=== PATIENT | male | born 1975 | race Caucasian/White ===

== ENCOUNTER 2023-12-08 16:48 | Emergency (ER) | payer BC, SELFPAY ==
[2023-12-08 16:58] VITALS: BP 160/108
--- NOTE | 2023-12-08 17:41 | ED.GENMED ---
History of Present Illness
<Katy Doe PA-C - Last Filed: 12/08/23 23:33>
General
Chief Complaint: Nasal Problem
Source: patient
Exam Limitations: none
Time Seen by Provider: 12/08/23 17:25
Nursing documentation reviewed up to this point in time: agreed with
History of Present Illness
History of Present Illness:
48-year-old male presenting to the emergency department for evaluation of injury to nose occurring last night. Patient states that he was at work event at a bar around 2:30 AM when he slipped on the wet floor causing him to fall forward striking
his nose on the edge of his cesar hand. He was able to catch himself and did not fall to the floor. No other associated injuries. No head strike or loss of consciousness. Patient was able to clean the wound on his nose out with soap and water
gently. Patient denies any significant pain in nose, nosebleeds or difficulty breathing. Patient denies any head or neck pain.
Bleeding has stopped as of today. Patient came to the emergency department to determine if will require any closure and for further evaluation.
Past History
<Katy Doe PA-C - Last Filed: 12/08/23 23:33>
Past History
ED Past Medical History: None
ED Past Surgical History: None
Social History
Tobacco: Non-smoker
Alcohol: None
Drug: None
Personal:
Living: with family
Employment: Employed
Family History
Family History: Negative Early CAD
Review of Systems
<BHARAT Leigh Last Filed: 12/08/23 23:33>
Review of Systems
Allergies reviewed?: Yes
All Other Systems: ROS reviewed and negative except as documented in HPI and ROS
Phy Exam
<Katy Doe PA-C - Last Filed: 12/08/23 23:33>
Physical Exam
Physical Exam:
Vitals: Hypertensive on arrival, otherwise vital signs stable
General: Patient is well appearing, no acute distress
Skin: Warm and dry, no rashes or lesions
Head: Normocephalic, atraumatic
Eyes: Sclera nonicteric. EOMs intact. No nystagmus.
Nose: 1 cm horizontal linear superficial abrasion to nasal bridge not actively bleeding with very minimal overlying tenderness.. No septal hematoma. No obvious deformity or step-off of nasal bridge. No epistaxis.
Throat: No blood in posterior pharynx. protecting airway
Neck: Normal ROM, no cervical spine tenderness, no meningismus
Cardiac: Regular rate and rhythm, no murmurs.
Pulm: Normal respiratory effort, no wheezes, rales, rhonchi heard on exam.
Abdomen: No abdominal tenderness.
Extremities: No evidence of cyanosis or edema
Neuro: AAOx3. CN II-XII intact. No focal neurologic deficits.
Psychiatric: Normal affect.
Course
<Katy Doe PA-C - Last Filed: 12/08/23 23:33>
Orders/Labs/Results
Orders:
Orders
12/08/23 17:40
Tetanus/Diphth/Acelpertussis [Adacel] 0.5 ml IM .ONCE ONE
Vital Signs
Initial and Last Documented VS:
Initial Vital Signs
Temp Pulse Resp BP Pulse Ox
97.9 F 70 19 160/108 99
12/08/23 16:58 12/08/23 16:58 12/08/23 16:58 12/08/23 16:58 12/08/23 16:58
Last Documented Vital Signs
Temp Pulse Resp BP Pulse Ox
97.9 F 71 16 158/89 98
12/08/23 16:58 12/08/23 17:51 12/08/23 17:51 12/08/23 17:51 12/08/23 17:51
<Pricilla Su DO - Last Filed: 12/08/23 19:52>
Orders/Labs/Results
Orders:
Orders
12/08/23 17:40
Tetanus/Diphth/Acelpertussis [Adacel] 0.5 ml IM .ONCE ONE
Vital Signs
Initial and Last Documented VS:
Initial Vital Signs
Temp Pulse Resp BP Pulse Ox
97.9 F 70 19 160/108 99
12/08/23 16:58 12/08/23 16:58 12/08/23 16:58 12/08/23 16:58 12/08/23 16:58
Last Documented Vital Signs
Temp Pulse Resp BP Pulse Ox
97.9 F 71 16 158/89 98
12/08/23 16:58 12/08/23 17:51 12/08/23 17:51 12/08/23 17:51 12/08/23 17:51
<Katy Doe PA-C - Last Filed: 12/08/23 23:33>
MDM/Problems Addressed
Differential Diagnosis Includes:
Not limited to: Laceration, nose contusion, nasal fracture
MDM/Problems Addressed:
48-year-old male presenting with abrasion to left nose sustained early this morning after hitting it on a beer can. No associated epistaxis. No significant tenderness of nose or obvious deformity. No headache, neck pain. No other injuries.
Patient hypertensive, otherwise vital signs stable. Patient is very well-appearing, in no apparent distress. There is no evidence of head or neck trauma. He does have a 1 cm superficial abrasion of the nasal bridge without any active bleeding.
Wound is not gaping. There is no active epistaxis. There is no evidence of a septal hematoma. No obvious deformity of nose or significant tenderness to nasal bridge. Do not suspect nasal fracture.
Did clean wound with normal saline. Did update tetanus shot. Recommend wound care. Discussed importance of sun protection to limit scarring. Return precautions discussed. Patient stable for discharge. Patient seen by attending physician.
Chronic conditions affecting care:
N/A
Acute Exacerbation and/or Progression of Chronic Illness:
N/A
<Katy Doe PA-C - Last Filed: 12/08/23 23:33>
*Pulse Oximetry
Patient hypoxic: no
*EKG
Interpreted by ED Provider?: NA
*Wildlife Enforcement Major Interpretation
Rate: Wildlife Enforcement Major- N/A
*Critical Care Note
Total Time (30-74mins, 75-104mins- exclusive of procedures): Not Applicable
ED Attending Note
<Katy Doe PA-C - Last Filed: 12/08/23 23:33>
-
Portions of this chart may have been created with voice recognition software.� Occasional wrong word or��sound alike� substitutions may have occurred due to the inherent limitations of voice recognition software.
<Pricilla Su DO - Last Filed: 12/08/23 19:52>
ED Attending Note
Patient seen and examined by attending physician: Yes
I performed a history and physical exam of patient and discussed management with resident, I reviewed resident's note and agree with documented findings and plan of care.: Yes
ED Attending Note:
I have reviewed and agree with Katy Doe's history and treatment plan. My exam revealed 1cm superficial abrasion to bridge of nose. No active bleeding. Nongaping. Advised wound care, stable for discharge.
Discharge Plan
Departure
Patient Disposition: Home (Routine Discharge)
Date of Disposition: 12/08/23
Time of Disposition: 17:48
Patient with high blood pressure during this ER visit?: Yes
Condition: Good
Covid-19: Not Applicable
Discharge Problem:
Abrasion of nose
Prescriptions:
No Action
ibuprofen [Advil] 200 MG tablet
600 mg PO Q6HPRN PRN (Reason: pain)
ibuprofen 800 MG tablet
800 mg PO TID Qty: 20 0RF
Referrals:
Brant Belle MD [Family Provider] -
Activity Restrictions/Additional Instructions:
RETURN TO THE EMERGENCY DEPARTMENT WITH ANY SIGNIFICANT SEVERE HEADACHE, SEVERE NECK PAIN, PAIN OR SWELLING OF NOSE, DIFFICULTY BREATHING, PERSISTENT NOSE BLEED, WORSENING IN CURRENT SYMPTOMS, OR ANY OTHER CONCERNS
-You should keep abrasion on nose clean and dry. Wash gently with soap and water. Monitor for any signs of infection.
-As discussed�you should keep nose well protected with sunscreen when you are out in the sun. You can also apply topical vitamin E oil to limits for appearance.
�We did update your tetanus shot while you were in the emergency department today.
Monitor symptoms closely and return to the emergency department any acute worsening/new symptom
Interventions
Interventions:
*Risk Screen - Suicide Last Done: 12/08/23 16:56
*General Assessment Last Done: 12/08/23 16:56
*Neglect/Abuse Screening Last Done: 12/08/23 16:56
ED- Fall Risk Assessment Last Done: 12/08/23 17:50
*ED COVID-19 Vaccine History Last Done: 12/08/23 16:56
*Nursing Disposition Last Done: 12/08/23 17:58
ED-EENT Assessment Last Done: 12/08/23 17:39
Discharge Date and Time
Discharge Date/Time: 12/08/23 17:59
Print Language: DUTCH
[2023-12-08] MEDS: ADACEL 0.5 ML IM (17:45)
[2023-12-08 17:51] VITALS: BP 158/89
== END 2023-12-08 17:59 | disposition home or self-care (01) ==
LOC: EMR 16:48
PROVIDERS: EMERGENCY PHYSICIAN Emergency Medicine; FAMILY PHYSICIAN Family Medicine
DX: S00.31XA Abrasion of nose, initial encounter (principal); W01.0XXA Fall on same level from slipping, tripping and stumbling without subsequent striking against object, initial encounter; Z23 Encounter for immunization
CPT/HCPCS: 99282; 90471; 90715

== ENCOUNTER 2024-01-13 13:35 | Emergency (ER) | payer BC, SELFPAY ==
[2024-01-13 13:43] VITALS: BP 179/107
[2024-01-13 14:36] LABS: % Basophils 0.8 % (0-2); % Eosinophils 1.2 % (0-6); % Immature Granulocytes 0.4 % (0-0.5); % Lymphocytes 25.2 % (20.5-51.1); % Monocytes 5.4 % (1.7-9.3); Absolute Eosinophils 0.1 10^3/uL (0-0.7); Absolute Lymphocytes 1.3 10^3/uL (1.2-3.4); Absolute Monocytes 0.3 10^3/uL (0.1-0.6); Absolute Neutrophils 3.4 10^3/uL (1.4-6.5); Hematocrit 42.3 % (39.0-52.0); Hemoglobin 14.9 g/dL (13.0-18.0); Mean Corp Hgb Conc. 35.2 g/dL (33.0-37.0); Mean Corpuscular Hgb 29.6 pg (27.0-31.0); Mean Corpuscular Volume 83.9 fL (80.0-94.0); Mean Platelet Volume 9.8 fL (7.4-10.4); Nucleated Red Blood Cells % 0 % (-); Platelet Count 210 10^3/uL (130-400); Red Blood Cell Count 5.04 10^6/uL (4.70-6.10); Red Cell Dist. Width 12.6 % (11.5-14.5)
[2024-01-13 14:55] LABS: ALT (SGPT) 41 U/L (0-50); AST (SGOT) 29 U/L (17-59); Albumin 4.9 g/dl (3.5-5.0); Alkaline Phosphatase 61 U/L (38-126); Blood Urea Nitrogen 17 mg/dl (9-20); Calcium 9.9 mg/dl (8.4-10.2); Carbon Dioxide 28 mmol/L (22-30); Chloride 100 mmol/L (98-107); Glucose 109 mg/dl (70-99); Potassium 4.1 mmol/L (3.5-5.1); Sodium 141 mmol/L (135-145); Total Protein 7.1 g/dl (6.3-8.2); eGFR > 60.00
[2024-01-13 15:05] LABS: Troponin I < 0.012 ng/ml
--- NOTE | 2024-01-13 16:31 | ED.GENMED ---
History of Present Illness
General
Chief Complaint: Chest Pain
Source: patient
Time Seen by Provider: 01/13/24 16:13
History of Present Illness
History of Present Illness:
48yoM with no significant past medical history presenting for evaluation of chest discomfort. Patient was doing yard work 1 week ago and was carrying a heavy door. He started to have bilateral shoulder discomfort the next day. His friend is a
physical therapist and told him to do some stretches to help with the pain. Patient reports central chest tightness over the past few days as well as shortness of breath. He is unsure if his chest discomfort is related to the stretches. He denies
any nausea or diaphoresis. He was seen in the ED last month for a nasal injury and he was told his blood pressure was elevated during his visit. He used his family member's BP cuff yesterday and BP was elevated in the 150s/100s. Of note, patient had
a 6 hour flight from [place] 1 week ago. He has not seen a PCP since 2018 and has an upcoming appt on 01/24/24. He denies any family history of heart disease. No tobacco use. Patient exercises regularly and is able to run about 1.5 miles at a time
without any chest discomfort.
Past History
Past History
ED Past Medical History: None
ED Past Surgical History: None
Social History
Tobacco: Non-smoker
Alcohol: None
Drug: None
Personal:
Living: with family
Employment: Employed
Family History
Family History: Negative Early CAD
Phy Exam
General Physical Exam
General Presentation: well appearing and no apparent distress
General age: appears stated age
General Skin: warm and dry
General Habitus: normal
General Mental: alert
ENT Exam
ENT Exam: normocephalic
Cardiovascular Exam
Cardiovascular Exam: regular rate/rhythm, no edema and no murmur
Pulmonary Exam
Pulmonary Exam: lungs clear, no respiratory distress, no crackles and no wheezing
[place] Coma Scale
Eye Opening: Spontaneous
Verbal Response: Oriented
Motor Response: Obeys Commands
GCS Total Score: 15
Skin Exam
Skin Exam: normal color and warm/dry
Psychiatric Exam
Psychiatric Exam: normal mood/affect
Scores
Heart Score for Chest Pain Patients
STEMI patient?: No
History: Slightly or Non-Suspicious
ECG: Nonspecific Repolarization
Age: >45 - <65 years
Risk Factors: No Risk Factors
Troponin: </= Normal Limit
Heart Score for Chest Pain Patients: 2
Heart Score Risk: 2.5% MACE over next 6 weeks
Course
Orders/Labs/Results
Orders:
Orders
01/13/24 13:36
EKG [Electrocardiogram (*1)] Urgent
Reason for Study: Chest Pain
EKG- Treatment ONCE
01/13/24 14:21
Complete Blood Count/With Diff Urgent
Comprehensive Metabolic Panel Urgent
Troponin I Urgent
01/13/24 16:29
Electrocardiogram (*1) Urgent
Reason for Study: Chest Pain
Cardiac Monitoring- Treatment ONCE
EKG- Treatment ONCE
01/13/24 16:30
CR Chest - 2 Views Urgent
Comment:
Reason For Exam: CP
01/13/24 17:18
D-Dimer Urgent
Troponin I Urgent
Abnormal Lab Results
01/13/24
14:21
Glucose 109 H mg/dl
(70-99)
01/13/24 14:21
01/13/24 14:21
Vital Signs
Initial and Last Documented VS:
Initial Vital Signs
Temp Pulse Resp BP Pulse Ox
98.1 F 74 18 179/107 99
01/13/24 13:43 01/13/24 13:43 01/13/24 13:43 01/13/24 13:43 01/13/24 13:43
Last Documented Vital Signs
Temp Pulse Resp BP Pulse Ox
98.1 F 66 19 139/105 97
01/13/24 13:43 01/13/24 18:30 01/13/24 18:30 01/13/24 18:00 01/13/24 18:30
MDM/Problems Addressed
Differential Diagnosis Includes:
48yoM here with central chest tightness x several days. C/o bilateral shoulder pain after yard work 1 week ago. C/o SOB. No known PMH. He is hypertensive on arrival with otherwise normal vitals. He is well appearing in no distress. Exam is
reassuring. Differential diagnosis includes but is not limited to: ACS, PE, pneumothorax, pneumonia, pericarditis, musculoskeletal, nonspecific chest pain
Initial ED plan: Cardiac labs and EKG obtained in triage. EKG shows NSR with an incomplete RBBB. Troponin WNL. Will obtain D-dimer, delta troponin/EKG, and CXR.
*EKG
Interpreted by ED Provider?: Yes
EKG Intrepretation Date: 01/13/24
Heart Rate: 62
Rate: normal
Rhythm: sinus
[place]: normal axis
QRS Pattern: right bundle branch block (incomplete)
Ischemia: no ischemia
*Critical Care Note
Total Time (30-74mins, 75-104mins- exclusive of procedures): Not Applicable
Update Note
Update Note:
D-dimer normal making PE very unlikely. Delta troponin/EKG unchanged. CXR is clear. On reassessment, patient is eager to go home. No indication for hospitalization. Advised close f/u with PCP. He has an appt scheduled for 01/23. Strict ED return
precautions discussed. He expressed understanding and is agreeable to plan. Patient discharged in stable condition.
ED Attending Note
-
Portions of this chart may have been created with voice recognition software.� Occasional wrong word or��sound alike� substitutions may have occurred due to the inherent limitations of voice recognition software.
Discharge Plan
Departure
Patient Disposition: Home (Routine Discharge)
Date of Disposition: 01/13/24
Time of Disposition: 18:41
Patient with high blood pressure during this ER visit?: Yes
Discharge Problem:
Chest pain
Instructions: Chest Pain PCP Follow Up
Prescriptions:
No Action
ibuprofen [Advil] 200 MG tablet
600 mg PO Q6HPRN PRN (Reason: pain)
ibuprofen 800 MG tablet
800 mg PO TID Qty: 20 0RF
Referrals:
Brant Belle MD [Family Provider] -
Activity Restrictions/Additional Instructions:
Please follow-up closely with your family doctor. Return to the ER immediately with any new or worsening symptoms.
Interventions
Interventions:
*Risk Screen - Suicide Last Done: 01/13/24 17:22
*General Assessment Last Done: 01/13/24 13:43
*Neglect/Abuse Screening Last Done: 01/13/24 17:22
ED- Fall Risk Assessment Last Done: 01/13/24 17:22
*ED COVID-19 Vaccine History Last Done: 01/13/24 17:22
*Nursing Disposition Last Done: 01/13/24 18:45
ED- Cardiac Assessment Last Done: 01/13/24 17:22
Discharge Date and Time
Discharge Date/Time: 01/13/24 18:48
Print Language: ETHIOPIAN
[2024-01-13 17:00] VITALS: BP 138/98
[2024-01-13 17:21] VITALS: BMI 28.3
[2024-01-13 17:40] LABS: D-Dimer < 0.27 ug/mlFEU (0.00-0.50)
[2024-01-13 17:50] LABS: Troponin I < 0.012 ng/ml
[2024-01-13 18:00] VITALS: BP 139/105
== END 2024-01-13 18:48 | disposition home or self-care (01) ==
LOC: EMR 13:35
PROVIDERS: Emergency Medicine; Physician Assistant; EMERGENCY PHYSICIAN Emergency Medicine; FAMILY PHYSICIAN Family Medicine
DX: R07.89 Other chest pain (principal); R03.0 Elevated blood-pressure reading, without diagnosis of hypertension
CPT/HCPCS: 99285; 71046; 80053; 84484; 85025; 85379; 93005